=== PATIENT | male | born 1945 | race Caucasian/White ===

== ENCOUNTER 2020-01-06 18:50 | Inpatient (IN) | payer MEDICARE, BC ==
[~2020-01-06] VITALS: Ht 160 cm; Wt 73.7 kg
[~2020-01-06 18:50] MED LIST: ACET325T9 PO; ACET500L17 PO; ACET500T68 PO; ASPI325T8 PO; ATOR20TA58 PO; BYSTOLIC5 MG PO; CA/D1TAB11 PO; CALC600T PO; CHOL10003 PO; CHOL200074 PO; CLOP75TA PO; DOCU-109 PO; FENO160T PO; ISOS30TA4 PO; LEVO100T5 PO; LEVO88TA4 PO; LOTE5DRO2 OP; MAG355OR14 PO; METO25TA4 PO; MULT-245 PO; MULT1TAB52 PO; NIAC500T PO; NIAC500T14 PO; NITR0.4T22 SL; OMEG1CAP38 PO; OMEP40CA45 PO; PANT20TA2 PO; POLY17PO29 PO; PROP225T2 PO; RANI150T2 PO; RANO500T2 PO; RISE35TA3 PO; VITAMINS
[2020-01-06 19:25] VITALS: BP 107/54
[2020-01-06] MEDS ORDERED: CLONAZEPAM1 MG PO (19:38)
[2020-01-06] MEDS ORDERED: DEXT1DRO12 OP (19:38)
[2020-01-06] MEDS ORDERED: PITA2TAB2 PO (19:38)
[2020-01-06] MEDS ORDERED: MULT-509 PO (19:38)
[2020-01-06] MEDS ORDERED: NITROGLYCERIN SUBLINGUAL 0.4 MG BOTTLE OF 25. SL PRN (20:00)
[2020-01-06] MEDS ORDERED: ONDANSETRON PF 4 MG/2 ML VIAL. IVP PRN (20:00)
[2020-01-06] MEDS ORDERED: ALBUTEROL SULFATE 2.5 MG/3 ML NEBU. NEB PRN (20:00)
[2020-01-06] MEDS ORDERED: ACETAMINOPHEN 500 MG TABLET PO PRN (20:00)
[2020-01-06 20:38] LABS: BASO % 0 % (0-3); EOS # 0.2 x10^3/uL (0.0-0.7); EOS % 2 % (0-3); HEMATOCRIT 41.1 % (39.0-53.0); HEMOGLOBIN 14.2 g/dL (13.0-17.5); LYMPH # 1.4 x10^3/uL (1.0-4.8); LYMPH % 21 % (24-48); MEAN CORPUSCULAR HEMOGLOBIN 32 pg (25-35); MEAN CORPUSCULAR HGB CONC 35 g/dL (31-37); MEAN CORPUSCULAR VOLUME 93 fL (79-100); MONO # 0.7 x10^3/uL (0.0-1.1); MONO % 9 % (0-9); NEUT # 4.7 x10^3/uL (1.8-7.7); NEUT % 67 % (31-73); PLATELET COUNT 197 x10^3/uL (140-400); RED BLOOD COUNT 4.41 x10^6/uL (4.30-5.70); RED CELL DISTRIBUTION WIDTH 13.2 % (11.5-14.5)
[2020-01-06] MEDS: RANOLAZINE 500 MG TAB.ER.12H PO SCH (20:43)
[2020-01-06 20:46] LABS: CALCIUM 8.9 mg/dL (8.5-10.1); CREATININE 1.1 mg/dL (0.7-1.3); GFR 65.8; POTASSIUM 3.3 mmol/L (3.5-5.1)
[2020-01-06 20:51] LABS: ALBUMIN 3.3 g/dL (3.4-5.0); ALBUMIN/GLOBULIN RATIO 1.1 (1.0-1.7); C-REACTIVE PROTEIN 0.6 mg/L (0-3.3); TOTAL BILIRUBIN 0.4 mg/dL (0.2-1.0); TOTAL PROTEIN 6.4 g/dL (6.4-8.2)
[2020-01-06] MEDS: METOPROLOL TART IMMED RELEASE 25 MG TABLET. PO SCH (20:54)
[2020-01-06] MEDS ORDERED: NIACIN ER 250 MG TABLET.ER PO SCH (21:00)
[2020-01-06 23:25] VITALS: BP 123/63
[2020-01-07 03:25] VITALS: BP 116/67
[2020-01-07] MEDS ORDERED: LEVOTHYROXINE 100 MCG TABLET PO SCH (06:00)
[2020-01-07 07:15] VITALS: BP 141/71
[2020-01-07] MEDS ORDERED: PANTOPRAZOLE 40 MG TABLET.DR. PO SCH (07:30)
[2020-01-07] MEDS: RANOLAZINE 500 MG TAB.ER.12H PO SCH (08:46)
[2020-01-07] MEDS: METOPROLOL TART IMMED RELEASE 25 MG TABLET. PO SCH (08:48)
[2020-01-07] MEDS ORDERED: ASPIRIN 325 MG TABLET PO SCH (09:00)
[2020-01-07] MEDS ORDERED: CLOPIDOGREL BISULFATE 75 MG TABLET PO SCH (09:00)
[2020-01-07] MEDS ORDERED: ISOSORBIDE MONONITRATE ER 30 MG TAB.ER.24H PO SCH (09:00)
--- NOTE | 2020-01-07 09:53 | PDOC2 ---
NEUROLOGY CONSULT Date of Admission Date of Admission DATE: 01/07/20 TIME: 09:52 Reason for Consult Reason for Consult: Diplopia Referring Physician Referring Physician: Dr. Hairston PCP: Dr. Cantu Source Source: Chart review, Patient History of Present Illness History of Present Illness The patient is a 74-year-old right-handed male who 2 nights ago at 8 PM noted the onset of horizontal diplopia and chest pain. He went to the [facility] emergency department. He was transferred here mainly to get an MRI. There is no prior history of stroke, seizure, or head injury. 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 He has jerks mainly when he is starting to fall asleep (physiologic hypnic jerks?). He has had a negative electroencephalogram. Yesterday he noted some drooping of the right eyelid. There has been no headache or any other pain. There is no pain with eye movement. He has not had any recent infection. Past Medical History Cardiovascular: CAD, HTN, OH, Hyperlipidemia, Other ( palpitations) CENTRAL NERVOUS SYSTEM: Other (Myoclonus) GI: GERD Renal/: Prostate Ca. Endocrine: Hypothyroidism, Osteopenia Past Surgical History Past Surgical History: Hernia Repair, Other ( coronary stents) Family History Family History: Other ( cardiac disease) Social History Social History Single, retired, quit smoking in 1970, no alcohol Current Medications Current Medications Current Medications Acetaminophen (Tylenol) 500 mg PRN Q6HRS PRN PO MILD PAIN / TEMP; Start 01/06/20 at 20:00 Aspirin (Abbey Aspirin) 162.5 mg DAILY PO Last administered on 01/07/20at 08:46; Start 01/07/20 at 09:00 Clopidogrel Bisulfate (Plavix) 75 mg DAILY PO Last administered on 01/07/20at 08:49; Start 01/07/20 at 09:00 Isosorbide Mononitrate (Imdur) 30 mg DAILY PO Last administered on 01/07/20at 08:49; Start 01/07/20 at 09:00 Levothyroxine Sodium (Synthroid) 100 mcg DAILY06 PO Last administered on 01/07/20at 05:53; Start 01/07/20 at 06:00 Metoprolol Tartrate (Lopressor) 25 mg BID PO Last administered on 01/07/20at 08:48; Start 01/06/20 at 21:00 Nitroglycerin (Nitrostat) 0.4 mg PRN Q5MIN PRN SL CHEST PAIN; Start 01/06/20 at 20:00 Ranolazine (Ranexa) 1,000 mg BID PO Last administered on 01/07/20at 08:46; Start 01/06/20 at 21:00 Niacin (Slo-Niacin) 500 mg QHS PO ; Start 01/06/20 at 21:00 Pantoprazole Sodium (Protonix) 40 mg DAILYAC PO Last administered on 01/07/20at 08:49; Start 01/07/20 at 07:30 Albuterol Sulfate (Ventolin Neb Soln) 2.5 mg PRN QID PRN NEB SHORTNESS OF BREATH; Start 01/06/20 at 20:00 Ondansetron HCl (Zofran) 4 mg PRN Q4HRS PRN IVP NAUSEA/VOMITING; Start 01/06/20 at 20:00 Active Scripts Active Reported Livalo (Pitavastatin Calcium) 2 Mg Tablet 1 Tab PO DAILY 30 Days Genteal Tears 0.1%-0.3% Drop (Dextran 70/Hypromellose/Pf) 1 Each Droperette 1 Each OP QHS Complete Multivitamin (Multivits,Th W-Fe,Other Min) 1 Each Tablet 1 Tab PO TID 30 Days Clonazepam 1 Mg Tablet 1 Mg PO QHS Ranexa (Ranolazine) 500 Mg Tab.er.12h 2 Tab PO BID Protonix (Pantoprazole Sodium) 20 Mg Tablet.dr 2 Tab PO DAILY [place] 3 Fish Oil Softgel ([place]-3 Fatty Acids/Fish Oil) 1 Each Capsule.dr 1 Each PO TID NITROGLYCERIN SubLingual (Nitroglycerin) 0.4 Mg Tab.subl 0.4 Mg SL PRN Q5MIN PRN Metoprolol Tartrate 25 Mg Tablet 25 Mg PO BID Acetaminophen 500 Mg Tablet 1 Tab PO Q6HRS PRN Isosorbide Mononitrate Er (Isosorbide Mononitrate) 30 Mg Tab.er.24h 30 Mg PO DAILY Clopidogrel (Clopidogrel Bisulfate) 75 Mg Tablet 1 Tab PO DAILY Vitamin D3 (Cholecalciferol (Vitamin D3)) 1,000 Unit Tablet 2,000 Unit PO BID Niaspan (Niacin) 500 Mg Tab.er.24h 500 Mg PO HS Miralax (Polyethylene Glycol 3350) 17 Gm Powd.pack 1 Pkt PO DAILY PRN Levothyroxine Sodium 100 Mcg Tablet 100 Mcg PO DAILY06 Gaviscon Liquid (Mag Carb/Al Hydrox/Alginic Ac) 355 Ml Oral.susp 30 Ml PO PRN DAILY PRN Colace (Docusate Sodium) 100 Mg Capsule 100 Mg PO PRN DAILY PRN Caltrate 600+D3+Min Chew Tab (Ca/D3/Mag/Zinc/Vance/Miah/Mgbor) 1 Each Tab.chew 1 Each PO TID Aspirin 325 Mg Tablet 0.5 Tab PO DAILY Allergies Allergies: Coded Allergies: atorvastatin (Verified Allergy, Intermediate, 10/25/17) ezetimibe (Verified Allergy, Intermediate, 10/25/17) fenofibrate (Verified Allergy, Intermediate, 10/25/17) pravastatin (Verified Allergy, Intermediate, 10/25/17) rosuvastatin (Verified Allergy, Intermediate, 10/25/17) simvastatin (Verified Allergy, Intermediate, 10/25/17) ROS Review of System Negative for fever, chills, weight loss, shortness of breath, chest pain, indigestion, hematochezia, melena, and dysuria. Full 14-point review of systems is negative. Physical Exam Physical Examination General: Well-developed, well-nourished white male in no acute distress HEENT: Normocephalic andatraumatic. Temporal arteriespulsatile and nontender. Neck: Supple without bruit, no meningismus Musculoskeletal: Stability:see neurologic. Gait exam:see neurologic. Tone:see neurolo gic.Strength:see neurologic. Neurological: Mental Status:intact, orientation, memory, attention span/concentration, language, fund of knowledge normal. Cranial Nerves:There is right medial rectus palsy and ptosis, pupils equal and reactive to light, visual vega are full to confrontation. Facial sensation is normal. There is no facial asymmetry. Vestibulo-ocular reflex is intact. Palate elevates and tongue protrudes in midline. All other cranial related problems are negative except as mentioned before.Reflexes:2+ and symmetric with flexor plantar responses. Motor:5/5 strength with normal tone and bulk. Coordination:Finger-nose finger and mbyf-cf-bvap testing are normal. Rapid alternating movements and fine finger movements are intact. Gait:Normal, including tandem. Sensory:Normal pinprick, vibration, light touch, proprioception. Vitals VITALS Vital Signs Date Time Temp Pulse Resp B/P (MAP) Pulse Ox O2 Delivery O2 Flow Rate FiO2 01/07/20 08:49 81 141/71 01/07/20 07:15 97.7 18 99 Room Air 97.7 Labs Labs Laboratory Tests Test 01/06/20 20:25 White Blood Count 7.0 x10^3/uL (4.0-11.0) Red Blood Count 4.41 x10^6/uL (4.30-5.70) Hemoglobin 14.2 g/dL (13.0-17.5) Hematocrit 41.1 % (39.0-53.0) Mean Corpuscular Volume 93 fL (79-100) Mean Corpuscular Hemoglobin 32 pg (25-35) Mean Corpuscular Hemoglobin Concent 35 g/dL (31-37) Red Cell Distribution Width 13.2 % (11.5-14.5) Platelet Count 197 x10^3/uL (140-400) Neutrophils (%) (Auto) 67 % (31-73) Lymphocytes (%) (Auto) 21 % (24-48) Monocytes (%) (Auto) 9 % (0-9) Eosinophils (%) (Auto) 2 % (0-3) Basophils (%) (Auto) 0 % (0-3) Neutrophils # (Auto) 4.7 x10^3/uL (1.8-7.7) Lymphocytes # (Auto) 1.4 x10^3/uL (1.0-4.8) Monocytes # (Auto) 0.7 x10^3/uL (0.0-1.1) Eosinophils # (Auto) 0.2 x10^3/uL (0.0-0.7) Basophils # (Auto) 0.0 x10^3/uL (0.0-0.2) Erythrocyte Sedimentation Rate 5 (0-15) Sodium Level 139 mmol/L (136-145) Potassium Level 3.3 mmol/L (3.5-5.1) Chloride Level 104 mmol/L (98-107) Carbon Dioxide Level 26 mmol/L (21-32) Anion Gap 9 (6-14) Blood Urea Nitrogen 15 mg/dL (8-26) Creatinine 1.1 mg/dL (0.7-1.3) Estimated GFR (Cockcroft-Gault) 65.8 BUN/Creatinine Ratio 14 (6-20) Glucose Level 138 mg/dL (70-99) Calcium Level 8.9 mg/dL (8.5-10.1) Total Bilirubin 0.4 mg/dL (0.2-1.0) Aspartate Amino Transf (AST/SGOT) 13 U/L (15-37) Alanine Aminotransferase (ALT/SGPT) 31 U/L (16-63) Alkaline Phosphatase 50 U/L (46-116) C-Reactive Protein, Quantitative 0.6 mg/L (0-3.3) Total Protein 6.4 g/dL (6.4-8.2) Albumin 3.3 g/dL (3.4-5.0) Albumin/Globulin Ratio 1.1 (1.0-1.7) Laboratory Tests Test 01/06/20 20:25 White Blood Count 7.0 x10^3/uL (4.0-11.0) Red Blood Count 4.41 x10^6/uL (4.30-5.70) Hemoglobin 14.2 g/dL (13.0-17.5) Hematocrit 41.1 % (39.0-53.0) Mean Corpuscular Volume 93 fL (79-100) Mean Corpuscular Hemoglobin 32 pg (25-35) Mean Corpuscular Hemoglobin Concent 35 g/dL (31-37) Red Cell Distribution Width 13.2 % (11.5-14.5) Platelet Count 197 x10^3/uL (140-400) Neutrophils (%) (Auto) 67 % (31-73) Lymphocytes (%) (Auto) 21 % (24-48) Monocytes (%) (Auto) 9 % (0-9) Eosinophils (%) (Auto) 2 % (0-3) Basophils (%) (Auto) 0 % (0-3) Neutrophils # (Auto) 4.7 x10^3/uL (1.8-7.7) Lymphocytes # (Auto) 1.4 x10^3/uL (1.0-4.8) Monocytes # (Auto) 0.7 x10^3/uL (0.0-1.1) Eosinophils # (Auto) 0.2 x10^3/uL (0.0-0.7) Basophils # (Auto) 0.0 x10^3/uL (0.0-0.2) Erythrocyte Sedimentation Rate 5 (0-15) Sodium Level 139 mmol/L (136-145) Potassium Level 3.3 mmol/L (3.5-5.1) Chloride Level 104 mmol/L (98-107) Carbon Dioxide Level 26 mmol/L (21-32) Anion Gap 9 (6-14) Blood Urea Nitrogen 15 mg/dL (8-26) Creatinine 1.1 mg/dL (0.7-1.3) Estimated GFR (Cockcroft-Gault) 65.8 BUN/Creatinine Ratio 14 (6-20) Glucose Level 138 mg/dL (70-99) Calcium Level 8.9 mg/dL (8.5-10.1) Total Bilirubin 0.4 mg/dL (0.2-1.0) Aspartate Amino Transf (AST/SGOT) 13 U/L (15-37) Alanine Aminotransferase (ALT/SGPT) 31 U/L (16-63) Alkaline Phosphatase 50 U/L (46-116) C-Reactive Protein, Quantitative 0.6 mg/L (0-3.3) Total Protein 6.4 g/dL (6.4-8.2) Albumin 3.3 g/dL (3.4-5.0) Albumin/Globulin Ratio 1.1 (1.0-1.7) Images Images CT HEAD WO CONTRAST , 01/05/2020 10:39 PM Jose Guadalupe's Mild generalized cerebral and cerebellar volume loss. Mild nonspecific periventricular hypoattenuation, most commonly seen with chronic small vessel ischemic disease. Calcified atherosclerosis of the bilateral cavernous and paraclinoid internal carotid arteries and intracranial vertebral arteries. No intra- or extra-axial mass or fluid collection. No acute hemorrhage. The ventricles are normal in size, shape, and morphology. The burgess-white matter junction is normal. The subarachnoid cisterns are patent. The visualized paranasal sinuses are normal. The visualized portions of the orbits and globes are normal. The mastoid air cells are clear. The food tester topogram shows no lytic lesion or fracture. Impression: No acute intracranial process. Mild cerebral volume loss. Mild chronic small vessel ischemic disease. BILATERAL DUPLEX CAROTID SONOGRAPHY History: Hypertension, previous OH and TIA. Dyslipidemia. COMPARISON: Carotid Doppler ultrasound June 19, 2019. Technique: Duplex sonography of the cervical portion of both carotid arteries was performed. Real-time grayscale, color flow Doppler, and Doppler spectral waveform analysis is performed. Findings: Right side: Peak systolic flow velocity of the CCA is 90 cm/sec. Peak systolic flow velocity of the ICA is 104 cm/sec. The ICA/CCA ratio is 1.1. Peak end diastolic flow velocity of the ICA is 18 cm/sec. The peak systolic velocity of the ECA is 120 cm/sec. No significant plaque formation is identified. Left side: Peak systolic flow velocity of the CCA is 93 cm/sec. Peak systolic flow velocity of the ICA is 109 cm/sec. The ICA/CCA ratio is 1.2. Peak end diastolic flow velocity of the ICA is 18 cm/sec. Peak systolic flow velocity of the ECA is 96 cm/sec. No significant plaque formation is identified. Vertebral arteries: Bilateral vertebral arteries demonstrate antegrade flow. IMPRESSION: No hemodynamically significant internal carotid artery stenosis is identified. Assessment/Plan Assessment/Plan Impression: Painless, pupil-sparing right oculomotor palsy, usually this is due to diabetes or infarction of the nerve, vasculitis, connective tissue disease, intracranial infection, strudel aneurysm, venous sinus thrombosis are all much less likely given the absence of pain. History of myoclonus, sounds like physiologic hypnic jerks, patient is on clonazepam Recommendations: Brain MRI Steroids are unlikely to be helpful Alternatingly patch each eye, one day at a time, for instance right eye today, left eye tomorrow, etc. Follow-up with ophthalmology Follow-up with Dr. Robin Okay to discharge today if MRI negative. I discussed with Dr. Hairston Think you for letting me help with patient care. GILDA DELVALLE MD Jan 07, 2020 09:53
[2020-01-07 10:33] VITALS: BP 140/72
--- NOTE | 2020-01-07 10:50 | HP ---
ADMIT DATE: 01/06/2020 HISTORY OF PRESENT ILLNESS: The patient is a 74-year-old male patient who was admitted to [facility] through the Emergency Room with the complaints of double vision starting approximately at 8:00 p.m. in the evening of 01/05/2020. He stated he took a full dose of aspirin at that time. He said that he was evaluated in the Emergency Room and on presentation he denied any headache, denied any nausea or vomiting, denied any tingling, numbness or localized weakness. He has had a CT scan of the head without contrast, which showed the patient has no acute intracranial process with mild cerebral volume loss and mild chronic small vessel ischemic disease. He was seen in consultation by Dr. Gee who diagnosed him with partial right third nerve paralysis and recommended [facility] arrange for an MRI and MRA to exclude the possibility of cerebral aneurysm. When I saw him this morning, he was sitting on the edge of the bed, eating his breakfast comfortably, in no apparent distress. He continued to complain of diplopia, again denied any other complaints, in particular denied any headache, denied any lateralizing sign. PAST MEDICAL HISTORY: Significant for hypertension, hyperlipidemia, history of coronary artery disease and myocardial infarction for which he underwent percutaneous transluminal coronary angioplasty and stent deployment to his mid right coronary artery and left circumflex and distal stenosis with drug-eluting stent. He is also known to have hypothyroidism, prostate cancer and colon cancer. PAST SURGICAL HISTORY: Significant for PCI with stent deployment, prostate biopsy and colonoscopy with polypectomy. ALLERGIES: HE IS ALLERGIC TO ALL STATINS INCLUDING ATORVASTATIN, PRAVASTATIN, ROSUVASTATIN, AND SIMVASTATIN. HE IS ALSO ALLERGIC TO FENOFIBRATE AND ZETIA. FAMILY HISTORY: He has one brother, older, who at age 74 because of ischemic heart disease. Father at age of 65 because of myocardial infarction. Mother at age of 67 because of complication of diabetes. SOCIAL HISTORY: He is single, never , has no children. He quit smoking in 1970. He quit drinking also at the same time. He does not use any drugs. He has held multiple jobs including working for [employer] as well as [employer]. He is retired. MEDICATIONS: He is currently on following medications: He is on levothyroxine 100 mcg once a day, Ranexa 1000 mg twice a day, niacin 500 mg at bedtime, Protonix 40 mg daily, metoprolol tartrate 25 mg p.o. b.i.d., isosorbide mononitrate 30 mg daily, Plavix 75 mg daily, albuterol/Atrovent for DuoNeb 4 times a day. He is on Pitavastatin for Livalo 2 mg p.o. daily, niacin 500 mg daily, nitroglycerin 0.4 mg sublingually every 5 minutes x 3, Lovenox 60 mg subcutaneous twice a day, aspirin 81 mg with breakfast, acetaminophen 650 mg every 4 hours as needed and Zofran 4 mg IV every 4 hours. PHYSICAL EXAMINATION: GENERAL: When I examined him this morning, he looked well and was clearly in no apparent respiratory distress. No pallor, jaundice, cyanosis or thyromegaly. No jugular venous distention. No limb edema. VITAL SIGNS: His heart rate was 81, blood pressure 141/71, temperature was 97.7, respiratory rate was 18 and oxygen saturation was 99% on room air. HEAD, EYES, EARS, NOSE AND THROAT: Normocephalic, atraumatic. He has right ptosis and diplopia looking to the left side. The diplopia disappears when he closes his left eye. His pupil is slightly dilated. NEUROLOGIC: All other cranial nerves are intact. He moves his extremities without difficulty. He ambulates without assistance or assistive devices. LABORATORY DATA: His lab work showed a white cell count of 7000, hemoglobin 14, hematocrit 41, MCV 93, and platelet count of 197,000. His serum sodium was 139, potassium 3.3, chloride 104, bicarbonate 26, anion gap of 9, BUN 15, creatinine 1.1, estimated GFR was 65 mL per minute, his glucose 138, calcium was 8.9. Total bilirubin, AST, ALT, alkaline phosphatase were normal. Total protein was 6.4, albumin was 3.3. His C-reactive protein was and his sedimentation rate was only 5 mm per hour. 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 Gee to arrange for him to have an MRI and MRA to exclude the possibility of cerebral aneurysm causing this right third nerve paralysis. I have consulted Dr. Blackburn and meanwhile, we will continue with all his medication. His sed rate and C-reactive protein are well within normal limits, excluding the possibility of giant cell arteritis. PATEL MEDINA MD DR: PRUDENCOI/david JOB#: [id number] / [id number]
--- NOTE | 2020-01-07 11:42 | RAD ---
BRAIN W/O CONTRAST History: Right 3rd nerve palsy. Technique: Multiplanar, multi sequential MR imaging was performed of the brain without contrast. Comparison: CT January 15, 2019 and January 05, 2020 Findings: No acute infarct. No intracranial hemorrhage. No mass effect. No hydrocephalus. Mild brain parenchymal volume loss. Chronic left katz radiata lacunar infarct. Additional minimal foci of T2/FLAIR hyperintensities within the hemispheric white matter, most often due to chronic microvascular ischemia. Imaged orbits are unremarkable. Imaged paranasal sinuses and mastoid air cells are clear. Impression: 1. No acute intracranial abnormality. 2. Chronic small left katz radiata lacunar infarct. Electronically signed by: Awais Murillo DO (01/07/2020 11:39 AM) [id number]
--- NOTE | 2020-01-07 13:02 | DS ---
DATE OF DISCHARGE: 01/07/2020 HOSPITAL COURSE: The patient is transferred from [facility] where he was admitted with new onset of diplopia. He also had chest pain. He has ruled out for acute myocardial infarction and was seen by Dr. Pearson, who recommended doing an MRI brain. We did consult Dr. Price and has had his MRI done this morning, which showed that there is no acute infarct, no intracranial hemorrhage, no mass effect, no hydrocephalus, has mild brain parenchymal volume loss, chronic left katz radiata, lacunar infarct, additional minimal foci within the hemispheric white matter, most often due to chronic microvascular ischemia. Imaged orbits, paranasal sinuses and mastoid air cells are clear. He was seen by Dr. Price and recommended that the patient can safely be discharged to follow up with his potato chip maker and Dr. Robin, his neurologist. He did not recommend any steroid treatment and perhaps using a patch each eye one day at a time. When I examined him this morning, he was sitting at the edge of the bed comfortably in no apparent distress. Continued to have diplopia, but denied any headache, tingling, numbness, or lateralizing weakness. PHYSICAL EXAMINATION: GENERAL: On examining him, he looked well and was clearly in no apparent respiratory distress. No pallor, jaundice, cyanosis, or thyromegaly. No jugular venous distension. No lower limb edema. VITAL SIGNS: His heart rate was 82, blood pressure is 140/72 with temperature of 97.8, respiratory rate was 17 and oxygen saturation was 97%. The rest of clinical exam is stable. He was discharged. LABORATORY WORK: Showed hemoglobin of 14, hematocrit 42 with normal white cell count and platelets. Sedimentation rate was only 5 mm per hour. Chemistry was also unremarkable. He was discharged home to continue on his acetaminophen 500 mg every 6 hours, aspirin 325 mg; he takes half a tablet once a day, Caltrate with vitamin D 1 tablet 2 times a day, cholecalciferol with vitamin D 2000 International Units twice a day, clonazepam 1 mg at bedtime, Plavix 75 mg once a day, artificial tears 1 drop to both eyes at bedtime, Colace 100 mg as needed daily for constipation, Imdur 30 mg once a day, levothyroxine sodium 100 mcg once a day, Gaviscon liquid to take 30 mL p.o. daily p.r.n. for constipation, metoprolol 25 mg twice a day, multivitamin with mineral 1 tablet once a day, niacin 500 mg at bedtime, nitroglycerin 0.4 mg sublingually every 5 minutes x 3, omega-3 fatty acid 1000 mg 3 times a day, Protonix 40 mg once a day, pitavastatin for Livalo 2 mg 1 tablet p.o. daily, polyethylene glycol 17 grams daily and Ranexa 1000 mg twice a day. FINAL DISCHARGE DIAGNOSES: 1. Right third nerve paralysis. 2. Hypertension. 3. Hyperlipidemia. 4. Coronary artery disease, status post myocardial infarction, status post percutaneous transluminal coronary angioplasty and stent deployment. 5. Hypothyroidism. PATEL MEDINA MD DR: PRUDENCIO/david JOB#: [id number] / [id number]
--- NOTE | 2020-01-07 13:32 | NUR ---
SS following for discharge planning. SS reviewed pt chart and discussed with RN. Pt is from home and is currently on room air. Discharge order on the chart for home with self care.
[2020-01-07 14:40] VITALS: BP 161/62
--- NOTE | 2020-01-07 15:03 | NUR ---
Pt discharged to home per Cab. Discharge instructions reviewed. Questions answered and pt verbalized understanding. Eye patches sent with pt and he will start patching his eye alternating one and the other daily. Right eye one day and left the next. Instructions given per Dr Price.
== END 2020-01-07 15:03 | disposition home or self-care (01) | DRG 123 ==
LOC: 6 SOUTH 18:50
PROVIDERS: ADMIT Internal Medicine; ATTEND Internal Medicine
DX: H49.01 Third [oculomotor] nerve palsy, right eye (principal); K21.9 Gastro-esophageal reflux disease without esophagitis; I10 Essential (primary) hypertension; E78.5 Hyperlipidemia, unspecified; H02.401 Unspecified ptosis of right eyelid; I25.10 Atherosclerotic heart disease of native coronary artery without angina pectoris; E03.9 Hypothyroidism, unspecified; I25.2 Old myocardial infarction; Z95.5 Presence of coronary angioplasty implant and graft; Z85.46 Personal history of malignant neoplasm of prostate; Z85.038 Personal history of other malignant neoplasm of large intestine; Z88.8 Allergy status to other drugs, medicaments and biological substances; Z87.891 Personal history of nicotine dependence; Z86.73 Personal history of transient ischemic attack (TIA), and cerebral infarction without residual deficits; Z83.3 Family history of diabetes mellitus; Z82.49 Family history of ischemic heart disease and other diseases of the circulatory system
CPT/HCPCS: 36415; 70551; 80053; 85025; 85651; 86140; G0378

== ENCOUNTER 2020-05-06 17:10 | Inpatient (IN) | payer MEDICARE, BC ==
[~2020-05-06] VITALS: Ht 160 cm; Wt 69.8 kg
[2020-05-06 17:10] VITALS: BP 136/69
[~2020-05-06 17:10] MED LIST changes: +CLONAZEPAM1 MG PO; +DEXT1DRO12 OP; +MULT-445 PO; +MULT-509 PO; -MULT1TAB52 PO; +NIAC-23 PO; -NIAC500T14 PO; +PITA2TAB2 PO
[2020-05-06] MEDS ORDERED: ONDANSETRON PF 4 MG/2 ML VIAL. IVP PRN (18:15)
[2020-05-06] MEDS ORDERED: MORPHINE SULFATE 2 MG/ML VIAL. IV PRN (18:15)
[2020-05-06] MEDS ORDERED: DOCUSATE SODIUM 100 MG CAPSULE. PO PRN (18:15)
[2020-05-06] MEDS ORDERED: NITROGLYCERIN SUBLINGUAL 0.4 MG BOTTLE OF 25. SL PRN (18:15)
[2020-05-06] MEDS ORDERED: ACETAMINOPHEN 500 MG TABLET PO PRN (18:15)
[2020-05-06] MEDS ORDERED: POLYETHYLENE GLYCOL 3350 17 GM PACKET. PO PRN (18:15)
[2020-05-06] MEDS: OMEGA-3 FATTY ACIDS/FISH OIL 1,000 MG CAPSULE. PO SCH (18:20)
[2020-05-06] MEDS ORDERED: MAG HYDROX/ALUMINUM HYD/SIMETH 30 ML ORAL.SUSP PO PRN (18:30)
[2020-05-06 19:37] VITALS: BP 121/70
[2020-05-06] MEDS: clonazePAM 0.5 MG TABLET PO SCH (21:52)
[2020-05-06] MEDS: CHOLECALCIFEROL (VITAMIN D3) 1,000 UNIT TABLET PO SCH (21:53)
[2020-05-06] MEDS: NIACIN ER 250 MG CAPSULE.ER PO SCH (21:53)
[2020-05-06] MEDS: RANOLAZINE 500 MG TAB.ER.12H PO SCH (21:53)
[2020-05-06] MEDS: METOPROLOL TART IMMED RELEASE 25 MG TABLET. PO SCH (21:54)
[2020-05-06] MEDS: POLYVINYL ALCOHOL 1.4% OPHTH SOLUTION 15ML BOTTLE. OU SCH (21:54)
[2020-05-06 23:19] VITALS: BP 127/68
[2020-05-07] VITALS (17 sets, daily range): BP systolic 125–188; BP diastolic 61–99
[2020-05-07] MEDS: LEVOTHYROXINE 100 MCG TABLET PO SCH (04:39)
[2020-05-07] MEDS: CALCIUM CARB/VIT D3 500/200 TABLET. PO SCH ×3 (08:00→17:27)
[2020-05-07] MEDS: OMEGA-3 FATTY ACIDS/FISH OIL 1,000 MG CAPSULE. PO SCH ×3 (08:00→17:27)
[2020-05-07] MEDS: CLOPIDOGREL BISULFATE 75 MG TABLET PO SCH (08:13)
[2020-05-07] MEDS: METOPROLOL TART IMMED RELEASE 25 MG TABLET. PO SCH ×2 (08:13→20:53)
[2020-05-07] MEDS: ISOSORBIDE MONONITRATE ER 30 MG TAB.ER.24H PO SCH (08:14)
[2020-05-07] MEDS: ASPIRIN 325 MG TABLET PO SCH (08:14)
[2020-05-07] MEDS ORDERED: LIDOCAINE 1% PF 2 ML VIAL. ONE (08:23)
[2020-05-07] MEDS ORDERED: IODIXANOL 320 MG/ML 100 ML VIAL. ONE (08:23)
[2020-05-07] MEDS ORDERED: HEPARIN for IV BOLUS 10,000 UNIT/10 ML VIAL. ONE (08:29)
[2020-05-07] MEDS ORDERED: fentaNYL PF VIAL 100 MCG/2 ML VIAL ONE ×2 (08:29→09:06)
[2020-05-07] MEDS ORDERED: NITROGLYCERIN 200 MCG/2 ML SYRINGE FOR CATH/VASC LAB. ONE (08:29)
[2020-05-07] MEDS ORDERED: VERAPAMIL 5 MG/2 ML VIAL. ONE (08:29)
[2020-05-07] MEDS ORDERED: MIDAZOLAM HCL/PF 2 MG/2 ML VIAL. ONE ×2 (08:29→08:54)
[2020-05-07] MEDS ORDERED: fentaNYL PF VIAL 100 MCG/2 ML VIAL IV ONE (08:30)
[2020-05-07] MEDS ORDERED: MIDAZOLAM HCL/PF 2 MG/2 ML VIAL. IV ONE (08:30)
[2020-05-07] MEDS ORDERED: IODIXANOL 320 MG/ML 100 ML VIAL. IART ONE (08:30)
[2020-05-07] MEDS ORDERED: LIDOCAINE 1% PF 2 ML VIAL. INJ ONE (08:30)
[2020-05-07] MEDS ORDERED: CONTRAST GIVEN. MC PRN (08:45)
[2020-05-07] MEDS: NITROGLYCERIN 200 MCG/2 ML SYRINGE FOR CATH/VASC LAB. IART ONE ×2 (08:56→08:57)
[2020-05-07] MEDS: HEPARIN for IV BOLUS 10,000 UNIT/10 ML VIAL. IART ONE ×2 (08:56→08:57)
[2020-05-07] MEDS: VERAPAMIL 5 MG/2 ML VIAL. IART ONE (08:57)
[2020-05-07] MEDS ORDERED: LIDOCAINE 1% Multi-Dose 20 ML VIAL. ONE (09:02)
--- NOTE | 2020-05-07 11:30 | CARD ---
MR#: [id number] Date of Study: 05/07/2020 Ordering Physician: ADA LI, Referring Physician: ADA LI, Tech: RT Parrish (R) JYOTI APPROVED REPORT Technologist: RT Parrish (R) JYOTI Nurse: Radha Richardson RN Procedure(s) performed: FLOURO TIME 4.1 MINUTES DOSE 54.93 Gycm2 CONTRAST 98 CC'S VISIPAQUE MODERATE SEDATION 46 MINUTES LHC, Coronary angiography, Left ventriculogram HISTORY : The patient is a 74 year-old male with a history of . INDICATION The indication(s) include : non-STEMI . [facility] Clinical Frailty Scale [facility] Clinical Frailty Scale: Mildly Frail Heart Failure Heart Failure: Yes If Yes, Newly Diagnosed: No If Yes, HF Type: Diastolic If Yes, NYHA Class: Class II PROCEDURE NARRATIVE Clinical information: 74-year-old male with a known prior history of coronary artery disease, dyslipidemia who presented to the hospital in the setting of accelerating angina despite nitroglycerin use. He has had a previous right ostial PCI and left proximal circumflex PCI. He has been doing well over the last 3 years but over the last 4 weeks or so has had accelerating angina. He also had a positive troponin and theref ore due to his chest pain and elevated biomarkers he was taken to the cardiac catheterization [facility] for further evaluation. INFORMED CONSENT Informed consent was obtained from the patient. ACCESS: The right wrist was prepped and draped in usual sterile fashion. Multiple attempts at traversing the right radial artery after local anesthesia with 2% lidocaine were unsuccessful. The wire would not advance past the proximal segment. Therefore the right radial access was abandoned in favor of right common femoral arterial access. The right groin was also prepped and draped in usual sterile fashio n. Under 2% lidocaine local anesthesia a 6 Kiswahili introducer sheath was placed in the right common f emoral artery without difficulties. Limited right common femoral artery angiography demonstrated no significant peripheral disease. Procedure details: Right and left coronary angiography was performed with a JR4 and JL 3 5 catheters. Left ventriculogr aphy was obtained with a pigtail catheter and a pullback was performed. Findings: Aorta 160/80 LVEDP 17 mmHg No gradient on pullback Left ventriculogram: Normal LV systolic function with ejection fraction of 60%. No significant taina l regurgitation or aortic insufficiency. Coronary angiography: Left main is a moderate caliber vessel with mild luminal irregularities Left circumflex is a moderate caliber vessel with a proximal 60% stenosis, patent proximal stent foll owed by a 60% stenosis in the proximal moderate caliber obtuse marginal The first obtuse marginal is a moderate caliber vessel with more proximal stenosis extending from the circumflex as described above but the distal vessel is free of disease. The LAD is a small to moderate caliber vessel with a proximal 80% stenosis involving a bifurcation le kvng at the first diagonal as well as a mid 70% stenosis. The distal and apical vessel is small in c aliber without significant disease The first diagonal is a small caliber vessel with a ostial proximal 80% stenosis and a mid 80% stenos is. RCA is a moderate to large caliber vessel with an ostial 70% in-stent restenosis and diffuse heavy ca lcification RPL is a small caliber vessel with an ostial 80% stenosis RPDA is a small to moderate caliber vessel with a mid 90% stenosis Conclusion 1. Acute on chronic diastolic heart failure, LVEDP 17 mmHg 2. Normal LV systolic function with ejection fraction of 65% 3. Severe three-vessel coronary artery disease Recommendations 1. The patient previously had declined coronary bypass grafting when he had triple-vessel disease se veral years ago. Given the progressive nature of his coronary disease and in-stent restenosis of the RCA he would likely benefit from evaluation for coronary bypass grafting. We will have the surgical team evaluate him. 2. Continue aspirin therapy, beta-natalee and nitrates. Hold Plavix. Signed by : Ada Li, Electronically Approved : 05/07/2020 11:29:46
[2020-05-07] MEDS: MULTIVITAMIN with MINERAL TABLET. PO SCH (12:24)
[2020-05-07] MEDS: PANTOPRAZOLE 40 MG TABLET.DR. PO SCH (12:24)
[2020-05-07] MEDS: CHOLECALCIFEROL (VITAMIN D3) 1,000 UNIT TABLET PO SCH ×2 (12:24→20:51)
[2020-05-07] MEDS: RANOLAZINE 500 MG TAB.ER.12H PO SCH ×2 (12:25→20:53)
--- NOTE | 2020-05-07 12:25 | NUR ---
SS following for discharge planning. SS reviewed pt chart and discussed with pt RN. Pt is from home and is currently on room air. Pt had heart cath today. SS will continue to follow for discharge planning.
--- NOTE | 2020-05-07 13:16 | PDOC ---
[facility] PROGRESS NOTE Chief Complaint Chief Complaint Multivessel CAD CKD stage 3 Acute on chronic diastolic heart failure, LVEDP 17 mmHg Hx of ME with catheterization in 2018 Hx of prostate cancer History of Present Illness History of Present Illness 05/07/2020 Patient is seen and examined Patient is awake and in NAD Chart reviewed Discussed with RN Vitals/I&O Vitals/I&O: Vital Signs Date Time Temp Pulse Resp B/P (MAP) Pulse Ox O2 Delivery O2 Flow Rate FiO2 05/07/20 12:25 75 145/83 05/07/20 11:30 98 Room Air 05/07/20 11:00 97.7 16 97.7 05/07/20 09:35 2.0 I & O 05/06/20 05/06/20 05/07/20 15:00 23:00 07:00 Intake Total 360 ml 550 ml Balance 360 ml 550 ml Physical Exam Physical Exam: GENERAL: No apparent distress. Alert and oriented. HEENT: Head normocephalic, atraumatic. NECK: Supple LUNGS: Clear to auscultation. HEART: RRR, S1, S2 present. ABDOMEN: Soft, no distension EXTREMITIES: No cyanosis or edema SKIN: No ulceration, no rashes General: Alert, Cooperative, No acute distress Heart: Regular rate Lungs: Clear Abdomen: Soft Extremities: No clubbing, No cyanosis Skin: No rashes Assessment and Plan Assessmemt and Plan ASSESSMENT Multivessel CAD CKD stage 3 Acute on chronic diastolic heart failure, LVEDP 17 mmHg Hx of ME with catheterization in 2018 Hx prostate cancer PLAN Continuous cardiac monitoring Cardiology consult Serial enzymes Trend labs DVT prophylaxis Subspecialist input appreciated Full code Comment Review of Relevant I have reviewed the following items guillermina (where applicable) has been applied. Medications: Current Medications Medications (Trade) Dose Ordered Sig/Ashkan Route PRN Reason Start Time Stop Time Status Last Admin Dose Admin Aspirin (Abbey Aspirin) 325 mg DAILY PO 05/07/20 09:00 05/07/20 08:14 Vitamin D (Vitamin D3) 2,000 unit BID PO 05/06/20 21:00 05/07/20 12:24 Clopidogrel Bisulfate (Plavix) 75 mg DAILY PO 05/07/20 09:00 05/07/20 08:13 Isosorbide Mononitrate (Imdur) 30 mg DAILY PO 05/07/20 09:00 05/07/20 08:14 Metoprolol Tartrate (Lopressor) 25 mg BID PO 05/06/20 21:00 05/07/20 08:13 Ranolazine (Ranexa) 1,000 mg BID PO 05/06/20 21:00 05/07/20 12:25 Calcium/Vitamin D (Oscal D 500mg/ 200uts) 1 tab TIDWMEALS PO 05/07/20 08:00 05/07/20 12:24 Clonazepam (KlonoPIN) 1 mg QHS PO 05/06/20 21:00 05/06/20 21:52 Artificial Tears (Artificial Tears) 1 drop QHS OU 05/06/20 21:00 05/06/20 21:54 Multivitamins (Thera M Plus) 1 tab DAILY PO 05/07/20 09:00 05/07/20 12:24 Niacin (Niaspan) 500 mg QHS PO 05/06/20 21:00 05/06/20 21:53 Fish Oil (Fish Oil) 1,000 mg TIDWMEALS PO 05/06/20 19:00 05/07/20 12:25 Pantoprazole Sodium (Protonix) 40 mg DAILYAC PO 05/07/20 07:30 05/07/20 12:24 Heparin Sodium/ Sodium Chloride (HEPARIN for ARTERIAL LINE FLUSH) 1,000 unit 1X ONCE IART 05/07/20 08:30 05/07/20 08:41 DC 05/07/20 08:30 Heparin Sodium/ Sodium Chloride (HEPARIN for ARTERIAL LINE FLUSH) 1,000 unit 1X ONCE IART 05/07/20 08:30 05/07/20 08:41 DC 05/07/20 08:30 Midazolam HCl (Versed) 2 mg 1X ONCE IV 05/07/20 08:30 05/07/20 08:41 DC 05/07/20 08:49 Fentanyl Citrate (Fentanyl 2ml Vial) 100 mcg 1X ONCE IV 05/07/20 08:30 05/07/20 08:41 DC 05/07/20 08:49 Iodixanol (Visipaque 320) 100 ml 1X ONCE IART 05/07/20 08:30 05/07/20 08:41 DC 05/07/20 09:20 Lidocaine HCl (Xylocaine-Mpf 1% 2ml Vial) 2 ml 1X ONCE INJ 05/07/20 08:30 05/07/20 08:41 DC 05/07/20 08:56 Justicifation of Admission Dx: Justifications for Admission: Justification of Admission Dx: N/A KEITH RODRIGES III DO May 07, 2020 13:16
--- NOTE | 2020-05-07 14:20 | HP ---
ADMIT DATE: 05/06/2020 CHIEF COMPLAINT: Chest pain. HISTORY OF PRESENT ILLNESS: The patient is a pleasant middle-aged male, who presented to the [facility] ER with chest pain. 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 The patient is now being examined on the telemetry floor where we recommended probable bypass surgery, although he is refusing. Apparently, he also had the same issue a couple of years ago. He was told to get bypass surgery, but he refused that. I just called Dr. Jay. He is going to come and talk to the patient again about possibly doing bypass surgery. PAST MEDICAL HISTORY: Coronary artery disease, noncompliance, hypertension, hyperlipidemia, polypharmacy, angina, CHF, anxiety, depression, constipation, GERD. ALLERGIES: ATORVASTATIN, FENOFIBRIC ACID, PRAVASTATIN. FAMILY HISTORY: Coronary artery disease. SOCIAL HISTORY: He is retired. He has 3 cats. He wants to go home with them. He does not drink, smoke or take drugs. MEDICATIONS: Reviewed, please refer to the MRAD. He is on 20 of them. REVIEW OF SYSTEMS: GENERAL: No history of weight change, weakness or fevers. SKIN: No bruising, hair changes or rashes. EYES: No blurred, double or loss of vision. NOSE AND THROAT: No history of nosebleeds, hoarseness or sore throat. HEART: No history of palpitations, chest pain or shortness of breath on exertion. LUNGS: Denies cough, hemoptysis, wheezing or shortness of breath. GASTROINTESTINAL: Denies changes in appetite, nausea, vomiting, diarrhea or constipation. GENITOURINARY: No history of frequency, urgency, hesitancy or nocturia. NEUROLOGIC: Denies history of numbness, tingling, tremor or weakness. PSYCHIATRIC: No history of panic, anxiety or depression. ENDOCRINE: No history of heat or cold intolerance, polyuria or polydipsia. EXTREMITIES: Denies muscle weakness, joint pain, pain on walking or stiffness. PHYSICAL EXAMINATION: VITALS: Within normal limits and are stable. GENERAL: No apparent distress. Alert and oriented. HEENT: Normal cephalic atraumatic, external auditory canals are patent. EYES: Extraocular muscles are intact, pupils are equally round and reactive to light and accommodation. MUSCULOSKELETAL: Well developed, well nourished, good range of motion. ENDOCRINE: No thyromegaly was palpated. LYMPHATICS: No cervical chain or axillary nodes were noted. HEMATOPOIETIC: No bruising. NECK: Supple, no JVD, no thyromegaly was noted. LUNGS: Clear to auscultation in all lung vega without rhonchi or wheezing. HEART: RRR, S1, S2 present. Peripheral pulses intact, no obvious murmurs were noted. ABDOMEN: Soft, nontender. Positive bowel sounds no organomegaly, normal bowel sounds. EXTREMITIES: Without any cyanosis, clubbing, or edema. Pedal pulses intact, Homans sign is negative. NEUROLOGIC: Normal speech, normal tone. A and O x 3, moves all extremities, no obvious focal deficits. PSYCHIATRIC: Normal affect, normal mood. Stable. SKIN: No ulcerations or rashes, good skin turgor, no jaundice. VASCULAR: Good capillary refill, neurovascular bundle appears to be intact. ASSESSMENT AND PLAN: Multivessel disease, suspect the patient may need bypass surgery, but he is not interested. We are going to await for Dr. Jay, then we talk to him. For now, we are doing cardiac monitoring, serial enzymes, serial EKGs, home meds, DVT prophylaxis. Full code. Prognosis guarded. KEITH RODRIGES DO DR: IKER/david JOB#: [id number] / [id number]
--- NOTE | 2020-05-07 15:24 | NUR ---
SS following up with discharge planning. SS reviewed pt chart and discussed with pt RN. SS was notified that pt will transfer to [facility] for cardiac procedure on 05/08/2020. SS contacted [facility], ; fax [phone], and discussed with transfer team. SS faxed records as requested. [facility] reported that any additional records and CD of imaging be sent once received. Case management assisting. [facility] reported that they are currently awaiting facility approval. Packet and transfer form placed on chart. SS will continue to follow for discharge planning.
--- NOTE | 2020-05-07 15:53 | RAD ---
CT CHEST WO CONTRAST History: Pre-CABG workup Technique: Noncontrast CT of the chest was performed. Coronal and sagittal reconstructions were performed. Exposure: One or more of the following individualized dose reduction techniques were utilized for this examination: 1. Automated exposure control 2. Adjustment of the mA and/or kV according to patient size 3. Use of iterative reconstruction technique. Comparison: None Findings: Chest: Coronary artery calcifications. Mild atheromatous plaque within the aorta. No aortic dilatation. No pathologic lymphadenopathy. No consolidation or pleural effusion. Mild linear right middle lobe and lingular atelectasis. Upper abdomen: Increased density within the gallbladder, may relate to vicarious excretion of contrast from recent contrast study gallbladder sludge. Contrast noted within the renal collecting system. Bones: No pathologic osseous lesions. Impression: 1. No acute intrathoracic pathology. Electronically signed by: Awais Murillo DO (05/07/2020 3:50 PM) [id number]
--- NOTE | 2020-05-07 16:54 | RAD ---
EXAM: Carotid Doppler sonogram. HISTORY: Coronary artery bypass grafting. Atherosclerosis. TECHNIQUE: Vee scale and color Doppler sonographic evaluation of the neck with spectral waveform analysis was performed and static images are submitted for review. FINDINGS: There is atherosclerotic plaque within the right carotid bulb. The peak systolic velocity within the right common carotid artery is 87 cm/sec. The peak systolic velocity within the right internal carotid artery is 125 cm/sec and the end diastolic velocity within the right internal carotid artery is 22 cm/sec. The right ICA/CCA ratio is 1.5. The peak systolic velocity within the left common carotid artery is 87 cm/sec. The peak systolic velocity within the left internal carotid artery is 84 cm/sec and the end diastolic velocity within the left internal carotid artery is 29 cm/sec. The left ICA/CCA ratio is 0.95. There is normal antegrade flow within both vertebral arteries. IMPRESSION: 1. Borderline elevated peak systolic velocity within the right ICA. This may be due to vessel tortuosity within its distal segment. This can be seen with near 50 percent stenosis. 2. No additional hemodynamically significant stenosis. 3. Mild atherosclerotic plaque within the right carotid bulb. PQRS Compliance Statement - Stenosis calculations for CT, MR and conventional angiography are based upon measurement of the distal ICA diameter in accordance with the NASCET methodology. Stenosis calculations for carotid ultrasound studies are derived from validated velocity criteria which are known to correlate with the NASCET methodology. Electronically signed by: Jo Ann Denis MD (05/07/2020 4:51 PM) [id number]
--- NOTE | 2020-05-07 17:13 | RAD ---
Examination: VEIN MAPPING LOWER EXT BILAT History: Reason: preCABG Comparison/Correlation: None Findings: Lower extremity venous ultrasound mapping was performed. Measurements are provided in centimeters. Right great saphenous vein Superior 0.6 cm Proximal thigh 0.3 cm Mid to distal thigh 0.2 cm Need to distal calf level 0.1 cm Ankle levels Right lesser saphenous vein Proximal and distal calf 0.2 cm Mid calf 0.3 cm Left great saphenous vein Superior 0.5 cm Proximal to distal thigh 0.3 cm Knee level 0.2 cm Calf 0.1 cm Ankle level 0.2 cm Left lesser saphenous vein 0.5 cm proximally 0.1 cm distally Limited left lesser saphenous vein has thrombus within it. A tributary about it also has thrombus. Thrombus is nonocclusive. Impression: Measurements of the right and left greater and lesser saphenous veins provided. Incidental note is made of nonocclusive superficial venous thrombus involving the left lesser saphenous vein. Electronically signed by: Adams Pillai MD (05/07/2020 5:10 PM) [id number]
[2020-05-07] MEDS: NIACIN ER 250 MG CAPSULE.ER PO SCH (20:50)
[2020-05-07] MEDS: clonazePAM 0.5 MG TABLET PO SCH (20:50)
[2020-05-07] MEDS: POLYVINYL ALCOHOL 1.4% OPHTH SOLUTION 15ML BOTTLE. OU SCH (20:53)
[2020-05-08 03:59] VITALS: BP 148/82
[2020-05-08] MEDS: LEVOTHYROXINE 100 MCG TABLET PO SCH (05:54)
[2020-05-08 07:11] VITALS: BP 116/58
[2020-05-08] MEDS: ASPIRIN 325 MG TABLET PO SCH (09:05)
[2020-05-08] MEDS: MULTIVITAMIN with MINERAL TABLET. PO SCH (09:05)
[2020-05-08] MEDS: OMEGA-3 FATTY ACIDS/FISH OIL 1,000 MG CAPSULE. PO SCH ×2 (09:05→12:00)
[2020-05-08] MEDS: METOPROLOL TART IMMED RELEASE 25 MG TABLET. PO SCH (09:06)
[2020-05-08] MEDS: CHOLECALCIFEROL (VITAMIN D3) 1,000 UNIT TABLET PO SCH (09:06)
[2020-05-08] MEDS: CLOPIDOGREL BISULFATE 75 MG TABLET PO SCH (09:07)
[2020-05-08] MEDS: PANTOPRAZOLE 40 MG TABLET.DR. PO SCH (09:07)
[2020-05-08] MEDS: ISOSORBIDE MONONITRATE ER 30 MG TAB.ER.24H PO SCH (09:07)
[2020-05-08] MEDS: CALCIUM CARB/VIT D3 500/200 TABLET. PO SCH ×2 (09:08→12:51)
--- NOTE | 2020-05-08 09:26 | PDOC ---
PROGRESS NOTES Chief Complaint Chief Complaint IMPRESSION Multivessel CAD CKD stage 3 Acute on chronic diastolic heart failure, LVEDP 17 mmHg Hx of RI with catheterization in 2018 Acute on chronic diastolic heart failure, LVEDP 17 mmHg Normal LV systolic function with ejection fraction of 65% Severe three-vessel coronary artery disease Hx of prostate cancer PLAN Transfer to [facility] today when bed available d/w rn History of Present Illness History of Present Illness 05/08/2020 Patient is seen and examined Patient is awake and in NAD Chart reviewed Discussed with RN Vitals Vitals Vital Signs Date Time Temp Pulse Resp B/P (MAP) Pulse Ox O2 Delivery O2 Flow Rate FiO2 05/08/20 09:07 86 183/94 05/08/20 07:11 97.5 16 98 Room Air 97.5 05/07/20 09:35 2.0 Physical Exam Physical Exam GENERAL: No apparent distress. Alert and oriented. HEENT: Head normocephalic, atraumatic. NECK: Supple LUNGS: Clear to auscultation. HEART: RRR, S1, S2 present. ABDOMEN: Soft, no distension EXTREMITIES: No cyanosis or edema SKIN: No ulceration, no rashes General: Alert, Oriented X3, Cooperative, No acute distress Heart: Regular rate, Normal S1, Normal S2 Lungs: Clear Abdomen: Normal bowel sounds, Soft, No tenderness Extremities: No clubbing, No cyanosis Skin: No rashes Labs LABS CT CHEST WO CONTRAST History: Pre-CABG workup Technique: Noncontrast CT of the chest was performed. Coronal and sagittal reconstructions were performed. Exposure: One or more of the following individualized dose reduction techniques were utilized for this examination: 1. Automated exposure control 2. Adjustment of the mA and/or kV according to patient size 3. Use of iterative reconstruction technique. Comparison: None Findings: Chest: Coronary artery calcifications. Mild atheromatous plaque within the aorta. No aortic dilatation. No pathologic lymphadenopathy. No consolidation or pleural effusion. Mild linear right middle lobe and lingular atelectasis. Upper abdomen: Increased density within the gallbladder, may relate to vicarious excretion of contrast from recent contrast study gallbladder sludge. Contrast noted within the renal collecting system. Bones: No pathologic osseous lesions. Impression: 1. No acute intrathoracic pathology. Electronically signed by: Awais Murillo DO (05/07/2020 3:50 PM) [id number] INFORMED CONSENT Informed consent was obtained from the patient. ACCESS: The right wrist was prepped and draped in usual sterile fashion. Multiple attempts at traversing the right radial artery after local anesthesia with 2% lidocaine were unsuccessful. The wire would not advance past the proximal segment. Therefore the right radial access was abandoned in favor of right common femoral arterial access. The right groin was also prepped and draped in usual sterile fashion. Under 2% lidocaine local anesthesia a 6 Ivorian introducer sheath was placed in the right common femoral artery without difficulties. Limited right common femoral artery angiography demonstrated no significant peripheral disease. Procedure details: Right and left coronary angiography was performed with a JR4 and JL 3 5 catheters. Left ventriculography was obtained with a pigtail catheter and a pullback was performed. Findings: Aorta 160/80 LVEDP 17 mmHg No gradient on pullback Left ventriculogram: Normal LV systolic function with ejection fraction of 60%. No significant mitral regurgitation or aortic insufficiency. Coronary angiography: Left main is a moderate caliber vessel with mild luminal irregularities Left circumflex is a moderate caliber vessel with a proximal 60% stenosis, patent proximal stent followed by a 60% stenosis in the proximal moderate caliber obtuse marginal The first obtuse marginal is a moderate caliber vessel with more proximal stenosis extending from the circumflex as described above but the distal vessel is free of disease. The LAD is a small to moderate caliber vessel with a proximal 80% stenosis involving a bifurcation lesion at the first diagonal as well as a mid 70% stenosis. The distal and apical vessel is small in caliber without significant disease The first diagonal is a small caliber vessel with a ostial proximal 80% stenosis and a mid 80% stenosis. RCA is a moderate to large caliber vessel with an ostial 70% in-stent restenosis and diffuse heavy calcification RPL is a small caliber vessel with an ostial 80% stenosis RPDA is a small to moderate caliber vessel with a mid 90% stenosis Conclusion 1. Acute on chronic diastolic heart failure, LVEDP 17 mmHg 2. Normal LV systolic function with ejection fraction of 65% 3. Severe three-vessel coronary artery disease Recommendations 1. The patient previously had declined coronary bypass grafting when he had triple-vessel disease several years ago. Given the progressive nature of his coronary disease and in-stent restenosis of the RCA he would likely benefit from evaluation for coronary bypass grafting. We will have the surgical team evaluate him. 2. Continue aspirin therapy, beta-natalee and nitrates. Hold Plavix. Signed by : Ada Jay, Electronically Approved : 05/07/2020 11:29:46 DICTATED and SIGNED BY: ADA JAY MD DATE: 05/07/20 0937 EXAM: Carotid Doppler sonogram. HISTORY: Coronary artery bypass grafting. Atherosclerosis. TECHNIQUE: Vee scale and color Doppler sonographic evaluation of the neck with spectral waveform analysis was performed and static images are submitted for review. FINDINGS: There is atherosclerotic plaque within the right carotid bulb. The peak systolic velocity within the right common carotid artery is 87 cm/sec. The peak systolic velocity within the right internal carotid artery is 125 cm/sec and the end diastolic velocity within the right internal carotid artery is 22 cm/sec. The right ICA/CCA ratio is 1.5. The peak systolic velocity within the left common carotid artery is 87 cm/sec. The peak systolic velocity within the left internal carotid artery is 84 cm/sec and the end diastolic velocity within the left internal carotid artery is 29 cm/sec. The left ICA/CCA ratio is 0.95. There is normal antegrade flow within both vertebral arteries. IMPRESSION: 1. Borderline elevated peak systolic velocity within the right ICA. This may be due to vessel tortuosity within its distal segment. This can be seen with near 50 percent stenosis. 2. No additional hemodynamically significant stenosis. 3. Mild atherosclerotic plaque within the right carotid bulb. PQRS Compliance Statement - Stenosis calculations for CT, MR and conventional angiography are based upon measurement of the distal ICA diameter in accordance with the NASCET methodology. Stenosis calculations for carotid ultrasound studies are derived from validated velocity criteria which are known to correlate with the NASCET methodology. Electronically signed by: Jo Ann Denis MD (05/07/2020 4:51 PM) [id number] Laboratory Tests Test 05/07/20 16:27 SARS-CoV-2 Antigen (Rapid) Negative (NEGATIVE) Comment Review of Relevant I have reviewed the following items guillermina (where applicable) has been applied. Labs Laboratory Tests Test 05/07/20 16:27 SARS-CoV-2 Antigen (Rapid) Negative (NEGATIVE) Laboratory Tests Test 05/07/20 16:27 SARS-CoV-2 Antigen (Rapid) Negative (NEGATIVE) Medications Current Medications Acetaminophen (Tylenol) 500 mg PRN Q6HRS PRN PO MILD PAIN / TEMP > 100.3'F; Start 05/06/20 at 18:15 Aspirin (Abbey Aspirin) 325 mg DAILY PO Last administered on 05/08/20 09:05; Start 05/07/20 at 09:00 Vitamin D (Vitamin D3) 2,000 unit BID PO Last administered on 05/08/20 09:06; Start 05/06/20 at 21:00 Clopidogrel Bisulfate (Plavix) 75 mg DAILY PO Last administered on 05/08/20at 09:07; Start 05/07/20 at 09:00 Docusate Sodium (Colace) 100 mg PRN DAILY PRN PO HARD STOOLS; Start 05/06/20 at 18:15 Isosorbide Mononitrate (Imdur) 30 mg DAILY PO Last administered on 05/08/20 09:07; Start 05/07/20 at 09:00 Levothyroxine Sodium (Synthroid) 100 mcg DAILY06 PO Last administered on 05/08/20at 05:54; Start 05/07/20 at 06:00 Metoprolol Tartrate (Lopressor) 25 mg BID PO Last administered on 05/08/20 09:06; Start 05/06/20 at 21:00 Nitroglycerin (Nitrostat) 0.4 mg PRN Q5MIN PRN SL CHEST PAIN; Start 05/06/20 at 18:15 Polyethylene Glycol (miraLAX PACKET) 17 gm PRN DAILY PRN PO CONSTIPATION; Start 05/06/20 at 18:15 Ranolazine (Ranexa) 1,000 mg BID PO Last administered on 05/07/20at 20:53; Start 05/06/20 at 21:00 Calcium/Vitamin D (Oscal D 500mg/ 200uts) 1 tab TIDWMEALS PO Last administered on 05/08/20 09:08; Start 05/07/20 at 08:00 Clonazepam (KlonoPIN) 1 mg QHS PO Last administered on 05/07/20 20:50; Start 05/06/20 at 21:00 Artificial Tears (Artificial Tears) 1 drop QHS OU Last administered on 05/07/20 20:53; Start 05/06/20 at 21:00 Al Hydroxide/Mg Hydroxide (Mylanta Plus Xs) 30 ml PRN Q2HR PRN PO HEARTBURN / GAS; Start 05/06/20 at 18:30 Multivitamins (Thera M Plus) 1 tab DAILY PO Last administered on 05/08/20at 09:05; Start 05/07/20 at 09:00 Niacin (Niaspan) 500 mg QHS PO Last administered on 05/07/20at 20:50; Start 05/06/20 at 21:00 Fish Oil (Fish Oil) 1,000 mg TIDWMEALS PO Last administered on 05/08/20at 09:05; Start 05/06/20 at 19:00 Pantoprazole Sodium (Protonix) 40 mg DAILYAC PO Last administered on 05/08/20at 09:07; Start 05/07/20 at 07:30 Morphine Sulfate (Morphine Sulfate) 2 mg PRN Q2HR PRN IV PAIN; Start 05/06/20 at 18:15 Ondansetron HCl (Zofran) 4 mg PRN Q4HRS PRN IVP NAUSEA/VOMITING; Start 05/06/20 at 18:15 Iodixanol (Visipaque 320) 100 ml STK-MED ONCE .ROUTE ; Start 05/07/20 at 08:23; Stop 05/07/20 at 08:24; Status DC Lidocaine HCl (Xylocaine-Mpf 1% 2ml Vial) 2 ml STK-MED ONCE .ROUTE ; Start 05/07/20 at 08:23; Stop 05/07/20 at 08:24; Status DC Heparin Sodium/ Sodium Chloride 1,000 ml @ As Directed STK-MED ONCE .ROUTE ; Start 05/07/20 at 08:24; Stop 05/07/20 at 08:24; Status DC Fentanyl Citrate (Fentanyl 2ml Vial) 100 mcg STK-MED ONCE .ROUTE ; Start 05/07/20 at 08:29; Stop 05/07/20 at 08:29; Status DC Midazolam HCl (Versed) 2 mg STK-MED ONCE .ROUTE ; Start 05/07/20 at 08:29; Stop 05/07/20 at 08:29; Status DC Heparin Sodium (Porcine) (Heparin Sodium) 10,000 unit STK-MED ONCE .ROUTE ; Start 05/07/20 at 08:29; Stop 05/07/20 at 08:29; Status DC Verapamil HCl (Verapamil) 5 mg STK-MED ONCE .ROUTE ; Start 05/07/20 at 08:29; Stop 05/07/20 at 08:29; Status DC Nitroglycerin (Nitroglycerin) 200 mcg STK-MED ONCE .ROUTE ; Start 05/07/20 at 08:29; Stop 05/07/20 at 08:29; Status DC Nitroglycerin (Nitroglycerin) 200 mcg 1X ONCE IART ; Start 05/07/20 at 08:30; Stop 05/07/20 at 08:41; Status DC Verapamil HCl (Verapamil) 2.5 mg 1X ONCE IART ; Start 05/07/20 at 08:30; Stop 05/07/20 at 08:41; Status DC Heparin Sodium (Porcine) (Heparin Sodium) 2,500 unit 1X ONCE IART ; Start 05/07/20 at 08:30; Stop 05/07/20 at 08:41; Status DC Heparin Sodium/ Sodium Chloride (HEPARIN for ARTERIAL LINE FLUSH) 1,000 unit 1X ONCE IART Last administered on 05/07/20at 08:30; Start 05/07/20 at 08:30; Stop 05/07/20 at 08:41; Status DC Heparin Sodium/ Sodium Chloride (HEPARIN for ARTERIAL LINE FLUSH) 1,000 unit 1X ONCE IART Last administered on 05/07/20at 08:30; Start 05/07/20 at 08:30; Stop 05/07/20 at 08:41; Status DC Midazolam HCl (Versed) 2 mg 1X ONCE IV Last administered on 05/07/20at 08:49; Start 05/07/20 at 08:30; Stop 05/07/20 at 08:41; Status DC Fentanyl Citrate (Fentanyl 2ml Vial) 100 mcg 1X ONCE IV Last administered on 05/07/20at 08:49; Start 05/07/20 at 08:30; Stop 05/07/20 at 08:41; Status DC Iodixanol (Visipaque 320) 100 ml 1X ONCE IART Last administered on 05/07/20at 09:20; Start 05/07/20 at 08:30; Stop 05/07/20 at 08:41; Status DC Lidocaine HCl (Xylocaine-Mpf 1% 2ml Vial) 2 ml 1X ONCE INJ Last administered on 05/07/20at 08:56; Start 05/07/20 at 08:30; Stop 05/07/20 at 08:41; Status DC Info (CONTRAST GIVEN -- Rx MONITORING) 1 each PRN DAILY PRN MC SEE COMMENTS; Start 05/07/20 at 08:45; Stop 05/09/20 at 08:44 Midazolam HCl (Versed) 2 mg STK-MED ONCE .ROUTE ; Start 05/07/20 at 08:54; Stop 05/07/20 at 08:55; Status DC Lidocaine HCl (Lidocaine 1% 20ml Vial) 20 ml STK-MED ONCE .ROUTE ; Start 05/07/20 at 09:02; Stop 05/07/20 at 09:03; Status DC Fentanyl Citrate (Fentanyl 2ml Vial) 100 mcg STK-MED ONCE .ROUTE ; Start 05/07/20 at 09:06; Stop 05/07/20 at 09:07; Status DC Active Scripts Active Reported Livalo (Pitavastatin Calcium) 2 Mg Tablet 1 Tab PO DAILY 30 Days Genteal Tears 0.1%-0.3% Drop (Dextran 70/Hypromellose/Pf) 1 Each Droperette 1 Each OP QHS Complete Multivitamin (Multivits,Th W-Fe,Other Min) 1 Each Tablet 1 Tab PO TID 30 Days Clonazepam 1 Mg Tablet 1 Mg PO QHS Ranexa (Ranolazine) 500 Mg Tab.er.12h 2 Tab PO BID Protonix (Pantoprazole Sodium) 20 Mg Tablet.dr 2 Tab PO DAILY Ovid 3 Fish Oil Softgel (Ovid-3 Fatty Acids/Fish Oil) 1 Each Capsule.dr 1 Each PO TID NITROGLYCERIN SubLingual (Nitroglycerin) 0.4 Mg Tab.subl 0.4 Mg SL PRN Q5MIN PRN Metoprolol Tartrate 25 Mg Tablet 25 Mg PO BID Acetaminophen 500 Mg Tablet 1 Tab PO Q6HRS PRN Isosorbide Mononitrate Er (Isosorbide Mononitrate) 30 Mg Tab.er.24h 30 Mg PO DAILY Clopidogrel (Clopidogrel Bisulfate) 75 Mg Tablet 1 Tab PO DAILY Vitamin D3 (Cholecalciferol (Vitamin D3)) 1,000 Unit Tablet 2,000 Unit PO BID Niaspan (Niacin) 500 Mg Tab.er.24h 500 Mg PO HS Miralax (Polyethylene Glycol 3350) 17 Gm Powd.pack 1 Pkt PO DAILY PRN Levothyroxine Sodium 100 Mcg Tablet 100 Mcg PO DAILY06 Gaviscon Liquid (Mag Carb/Al Hydrox/Alginic Ac) 355 Ml Oral.susp 30 Ml PO PRN DAILY PRN Colace (Docusate Sodium) 100 Mg Capsule 100 Mg PO PRN DAILY PRN Caltrate 600+D3+Min Chew Tab (Ca/D3/Mag/Zinc/Vance/Miah/Mgbor) 1 Each Tab.chew 1 Each PO TID Aspirin 325 Mg Tablet 1 Tab PO DAILY Vitals/I & O Vital Sign - Last 24 Hours 05/07/20 05/07/20 05/07/20 05/07/20 09:35 09:45 10:00 10:15 Pulse 70 66 66 68 Resp 16 Pulse Ox 99 96 95 O2 Delivery Nasal Cannula Room Air Room Air Room Air O2 Flow Rate 2.0 05/07/20 05/07/20 05/07/20 05/07/20 10:30 11:00 11:00 11:30 Temp 97.7 97.7 Pulse 64 66 74 70 Resp 16 B/P (MAP) 140/76 (97) Pulse Ox 94 96 95 98 O2 Delivery Room Air Room Air Room Air Room Air 05/07/20 05/07/20 05/07/20 05/07/20 12:00 12:25 12:30 13:30 Pulse 68 75 74 88 B/P (MAP) 145/83 Pulse Ox 98 97 94 O2 Delivery Room Air Room Air Room Air 05/07/20 05/07/20 05/07/20 05/07/20 14:30 15:00 15:30 19:41 Temp 97.6 97.7 97.6 97.7 Pulse 82 76 74 82 Resp 16 16 B/P (MAP) 181/97 (125) 136/93 (107) Pulse Ox 97 98 97 98 O2 Delivery Room Air Room Air Room Air Room Air 05/07/20 05/07/20 05/07/20 05/07/20 20:00 20:53 20:53 22:47 Temp 97.9 97.9 Pulse 82 82 92 Resp 16 B/P (MAP) 136/93 136/93 126/71 (89) Pulse Ox 99 O2 Delivery Room Air Room Air 05/08/20 05/08/20 05/08/20 05/08/20 03:59 07:11 09:06 09:07 Temp 98.4 97.5 98.4 97.5 Pulse 78 86 84 86 Resp 16 16 B/P (MAP) 148/82 (104) 116/58 (77) 183/94 183/94 Pulse Ox 94 98 O2 Delivery Room Air Room Air Intake and Output 05/07/20 05/07/20 05/08/20 15:00 23:00 07:00 Intake Total 400 ml 300 ml Output Total 0 ml Balance 400 ml 300 ml Justicifation of Admission Dx: Justifications for Admission: Justification of Admission Dx: N/A ERMELINDA ODRAZ MD May 08, 2020 09:26
[2020-05-08] MEDS: RANOLAZINE 500 MG TAB.ER.12H PO SCH (09:27)
--- NOTE | 2020-05-08 10:43 | NUR ---
SS following up with discharge planning. Pt agreeable to transfer to [facility]. Pt signed transfer form. CD's and reports received from radiology and cardiology. SS phoned and faxed clinical updates to [facility], ; fax [phone]. Pt accepted and SS currently awaiting on bed assignment. Packet, CD's, transfer form, and ambulance form on the chart.
[2020-05-08 10:53] VITALS: BP 150/87
--- NOTE | 2020-05-08 11:42 | CARD ---
MR#: [id number] Date of Study: 05/08/2020 Ordering Physician: AYDE JAMESON, Referring Physician: AYDE JAMESON, Tech: Erin Damon APPROVED REPORT EXAM: Two-dimensional and M-mode echocardiogram with Doppler and color Doppler. Other Information Quality : AverageHR: 75bpm INDICATION Pre-Op Cardiac Disease: CAD Congestive Heart Failure RISK FACTORS Hypertension Hyperlipidemia 2D DIMENSIONS RVDd1.9 (2.9-3.5cm)Left Atrium(2D)2.5 (1.6-4.0cm) IVSd0.9 (0.7-1.1cm)Aortic Root(2D)2.4 (2.0-3.7cm) LVDd3.9 (3.9-5.9cm)LVOT Diameter1.9 (1.8-2.4cm) PWd1.0 (0.7-1.1cm)LVDs2.7 (2.5-4.0cm) FS (%) 32.2 %SV40.4 ml LVEF(%)61.0 (>50%) Aortic Valve AoV Peak Adriel.147.1cm/sAoV VTI27.3cm AO Peak GR.8.7mmHgLVOT Peak Adriel.105.1cm/s LVOT VTI 20.91cmAO Mean GR.5mmHg TRENT (VMAX)1.30oz5IYK (VTI)2.15cm2 Mitral Valve MV E Hkskrudx22.4cm/sMV DECEL [id number] MV A Cfxzeksp68.1cm/sMV E Mean Gr.2mmHg MV BFF17gvO/A Ratio0.7 MVA (PHT)3.05cm2 TDI E/Lateral E'9.4E/Medial E'9.9 Pulmonary Valve PV Peak Lnnvtfya301.5cm/sPV Peak Grad.5mmHg Tricuspid Valve TR P. Cpdtobsd446yb/sRAP [id number] TR Peak Gr.31nvHtJSWU35rvIz Pulmonary Vein S1 Lhlffynh06.6cm/sD2 Idtoubhp82.3cm/s PVa [id number] LEFT VENTRICLE The left ventricle is normal size. There is normal left ventricular wall thickness. The left ventricu lar systolic function is normal and the ejection fraction is within normal range. The Ejection Fracti on is 55-60%. There is normal LV segmental wall motion. Transmitral Doppler flow pattern is Grade I-a bnormal relaxation pattern. RIGHT VENTRICLE The right ventricle is normal size. There is normal right ventricular wall thickness. The right ventr icular systolic function is normal. ATRIA The left atrium size is normal. The right atrium size is normal. The interatrial septum is intact wit h no evidence for an atrial septal defect or patent foramen ovale as noted on 2-D or Doppler imaging. AORTIC VALVE The aortic valve is thickened but opens well. Doppler and Color Flow revealed trace aortic regurgitat ion. There is no significant aortic valvular stenosis. Calculated aortic valve area is 2.18 cm2 with maximum pressure gradient of 10 mmHg and mean pressure gradient of 5 mmHg. MITRAL VALVE The mitral valve is normal in structure and function. There is no evidence of mitral valve prolapse. There is no mitral valve stenosis. Doppler and Color-flow revealed trace mitral regurgitation. TRICUSPID VALVE The tricuspid valve is normal in structure and function. Doppler and Color Flow revealed trace tricus pid regurgitation with an estimated PAP of 35 mmHg. There is no tricuspid valve stenosis. PULMONIC VALVE The pulmonic valve is not well visualized. Doppler and Color Flow revealed trace pulmonic valvular re gurgitation. GREAT VESSELS The aortic root is normal in size. The ascending aorta is normal in size. The IVC is normal in size a nd collapses >50% with inspiration. PERICARDIAL EFFUSION There is no evidence of significant pericardial effusion. Critical Notification Critical Value: No <Conclusion> The left ventricle is normal size. The left ventricular systolic function is normal and the ejection fraction is within normal range. The Ejection Fraction is 55-60%. Doppler and Color Flow revealed trace aortic regurgitation. There is no significant aortic valvular stenosis. Calculated aortic valve area is 2.18 cm2 with maximum pressure gradient of 10 mmHg and mean pressure gradient of 5 mmHg. Doppler and Color-flow revealed trace mitral regurgitation. Doppler and Color Flow revealed trace tricuspid regurgitation with an estimated PAP of 35 mmHg. Signed by : Eddie Fenton MD Electronically Approved : 05/08/2020 11:42:10
--- NOTE | 2020-05-08 13:06 | NUR ---
SS following up with discharge planning. SS received phone contact from [facility], ; fax [phone], reporting pt has bed assignment at [facility]. Accepting physician, Dr. Yony Maki. Bed# 2322. Report#[phone]. Pt will discharge via [facility] ambulance, . Packet, ambulance from, and transfer form on the chart.
--- NOTE | 2020-05-08 13:06 | PDOC3 ---
Discharge Summary Date of Admission: May 07, 2020 Date of Discharge: May 08, 2020 Follow-Up: 1-2 days Admitting Diagnosis comment: discharge dx UNSTABLE ANGINA Multivessel CAD CKD stage 3 Acute on chronic diastolic heart failure, LVEDP 17 mmHg Hx of [place] with catheterization in 2018 Acute on chronic diastolic heart failure, LVEDP 17 mmHg Normal LV systolic function with ejection fraction of 65% Severe three-vessel coronary artery disease Hx of prostate cancer PLAN Transfer to [facility] today when bed available d/w rn d/c planning 35 min History of Present Illness History of Present Illness 05/08/2020 Patient is seen and examined Patient is awake and in NAD Chart reviewed Discussed with RN Vitals Vitals Vital Signs Date Time Temp Pulse Resp B/P (MAP) Pulse Ox O2 Delivery O2 Flow Rate FiO2 05/08/20 09:07 86 183/94 05/08/20 07:11 97.5 16 98 Room Air 97.5 05/07/20 09:35 2.0 Physical Exam Physical Exam GENERAL: No apparent distress. Alert and oriented. HEENT: Head normocephalic, atraumatic. NECK: Supple LUNGS: Clear to auscultation. HEART: RRR, S1, S2 present. ABDOMEN: Soft, no distension EXTREMITIES: No cyanosis or edema SKIN: No ulceration, no rashes General: Alert, Oriented X3, Cooperative, No acute distress Heart: Regular rate, Normal S1, Normal S2 Lungs: Clear Abdomen: Normal bowel sounds, Soft, No tenderness Extremities: No clubbing, No cyanosis Skin: No rashes Labs LABS CT CHEST WO CONTRAST History: Pre-CABG workup Technique: Noncontrast CT of the chest was performed. Coronal and sagittal reconstructions were performed. Exposure: One or more of the following individualized dose reduction techniques were utilized for this examination: 1. Automated exposure control 2. Adjustment of the mA and/or kV according to patient size 3. Use of iterative reconstruction technique. Comparison: None Findings: Chest: Coronary artery calcifications. Mild atheromatous plaque within the aorta. No aortic dilatation. No pathologic lymphadenopathy. No consolidation or pleural effusion. Mild linear right middle lobe and lingular atelectasis. Upper abdomen: Increased density within the gallbladder, may relate to vicarious excretion of contrast from recent contrast study gallbladder sludge. Contrast noted within the renal collecting system. Bones: No pathologic osseous lesions. Impression: 1. No acute intrathoracic pathology. Electronically signed by: Awais Murillo DO (05/07/2020 3:50 PM) [id number] INFORMED CONSENT Informed consent was obtained from the patient. ACCESS: The right wrist was prepped and draped in usual sterile fashion. Multiple attempts at traversing the right radial artery after local anesthesia with 2% lidocaine were unsuccessful. The wire would not advance past the proximal segment. Therefore the right radial access was abandoned in favor of right common femoral arterial access. The right groin was also prepped and draped in usual sterile fashion. Under 2% lidocaine local anesthesia a 6 Azeri introducer sheath was placed in the right common femoral artery without difficulties. Limited right common femoral artery angiography demonstrated no significant peripheral disease. Procedure details: Right and left coronary angiography was performed with a JR4 and JL 3 5 catheters. Left ventriculography was obtained with a pigtail catheter and a pullback was performed. Findings: Aorta 160/80 LVEDP 17 mmHg No gradient on pullback Left ventriculogram: Normal LV systolic function with ejection fraction of 60%. No significant mitral regurgitation or aortic insufficiency. Coronary angiography: Left main is a moderate caliber vessel with mild luminal irregularities Left circumflex is a moderate caliber vessel with a proximal 60% stenosis, patent proximal stent followed by a 60% stenosis in the proximal moderate caliber obtuse marginal The first obtuse marginal is a moderate caliber vessel with more proximal stenosis extending from the circumflex as described above but the distal vessel is free of disease. The LAD is a small to moderate caliber vessel with a proximal 80% stenosis involving a bifurcation lesion at the first diagonal as well as a mid 70% stenosis. The distal and apical vessel is small in caliber without significant disease The first diagonal is a small caliber vessel with a ostial proximal 80% stenosis and a mid 80% stenosis. RCA is a moderate to large caliber vessel with an ostial 70% in-stent restenosis and diffuse heavy calcification RPL is a small caliber vessel with an ostial 80% stenosis RPDA is a small to moderate caliber vessel with a mid 90% stenosis Conclusion 1. Acute on chronic diastolic heart failure, LVEDP 17 mmHg 2. Normal LV systolic function with ejection fraction of 65% 3. Severe three-vessel coronary artery disease Recommendations 1. The patient previously had declined coronary bypass grafting when he had triple-vessel disease several years ago. Given the progressive nature of his coronary disease and in-stent restenosis of the RCA he would likely benefit from evaluation for coronary bypass grafting. We will have the surgical team evaluate him. 2. Continue aspirin therapy, beta-natalee and nitrates. Hold Plavix. Signed by : Ada Jay, Electronically Approved : 05/07/2020 11:29:46 DICTATED and SIGNED BY: ADA JAY MD Brief Hospital Course Mr. Trevino is a 74 old [sex] who presented with [ UNSTABLE ANGINA] CONDITION AT DISCHARGE: Improved Discharge Medications Current Medications Acetaminophen (Tylenol) 500 mg PRN Q6HRS PRN PO MILD PAIN / TEMP > 100.3'F; Start 05/06/20 at 18:15 Aspirin (Abbey Aspirin) 325 mg DAILY PO Last administered on 05/08/20at 09:05; Start 05/07/20 at 09:00 Vitamin D (Vitamin D3) 2,000 unit BID PO Last administered on 05/08/20at 09:06; Start 05/06/20 at 21:00 Clopidogrel Bisulfate (Plavix) 75 mg DAILY PO Last administered on 05/08/20at 09:07; Start 05/07/20 at 09:00 Docusate Sodium (Colace) 100 mg PRN DAILY PRN PO HARD STOOLS; Start 05/06/20 at 18:15 Isosorbide Mononitrate (Imdur) 30 mg DAILY PO Last administered on 05/08/20at 09:07; Start 05/07/20 at 09:00 Levothyroxine Sodium (Synthroid) 100 mcg DAILY06 PO Last administered on 05/08/20at 05:54; Start 05/07/20 at 06:00 Metoprolol Tartrate (Lopressor) 25 mg BID PO Last administered on 05/08/20at 09:06; Start 05/06/20 at 21:00 Nitroglycerin (Nitrostat) 0.4 mg PRN Q5MIN PRN SL CHEST PAIN; Start 05/06/20 at 18:15 Polyethylene Glycol (miraLAX PACKET) 17 gm PRN DAILY PRN PO CONSTIPATION; Start 05/06/20 at 18:15 Ranolazine (Ranexa) 1,000 mg BID PO Last administered on 05/08/20at 09:27; Start 05/06/20 at 21:00 Calcium/Vitamin D (Oscal D 500mg/ 200uts) 1 tab TIDWMEALS PO Last administered on 05/08/20at 12:51; Start 05/07/20 at 08:00 Clonazepam (KlonoPIN) 1 mg QHS PO Last administered on 05/07/20at 20:50; Start 05/06/20 at 21:00 Artificial Tears (Artificial Tears) 1 drop QHS OU Last administered on 05/07/20at 20:53; Start 05/06/20 at 21:00 Al Hydroxide/Mg Hydroxide (Mylanta Plus Xs) 30 ml PRN Q2HR PRN PO HEARTBURN / GAS; Start 05/06/20 at 18:30 Multivitamins (Thera M Plus) 1 tab DAILY PO Last administered on 05/08/20at 09:05; Start 05/07/20 at 09:00 Niacin (Niaspan) 500 mg QHS PO Last administered on 05/07/20at 20:50; Start 05/06/20 at 21:00 Fish Oil (Fish Oil) 1,000 mg TIDWMEALS PO Last administered on 05/08/20at 09:05; Start 05/06/20 at 19:00 Pantoprazole Sodium (Protonix) 40 mg DAILYAC PO Last administered on 05/08/20at 09:07; Start 05/07/20 at 07:30 Morphine Sulfate (Morphine Sulfate) 2 mg PRN Q2HR PRN IV PAIN; Start 05/06/20 at 18:15 Ondansetron HCl (Zofran) 4 mg PRN Q4HRS PRN IVP NAUSEA/VOMITING; Start 05/06/20 at 18:15 Iodixanol (Visipaque 320) 100 ml STK-MED ONCE .ROUTE ; Start 05/07/20 at 08:23; Stop 05/07/20 at 08:24; Status DC Lidocaine HCl (Xylocaine-Mpf 1% 2ml Vial) 2 ml STK-MED ONCE .ROUTE ; Start at 08:23; Stop 05/07/20 at 08:24; Status DC Heparin Sodium/ Sodium Chloride 1,000 ml @ As Directed STK-MED ONCE .ROUTE ; Start 05/07/20 at 08:24; Stop 05/07/20 at 08:24; Status DC Fentanyl Citrate (Fentanyl 2ml Vial) 100 mcg STK-MED ONCE .ROUTE ; Start 05/07/20 at 08:29; Stop 05/07/20 at 08:29; Status DC Midazolam HCl (Versed) 2 mg STK-MED ONCE .ROUTE ; Start 05/07/20 at 08:29; Stop 05/07/20 at 08:29; Status DC Heparin Sodium (Porcine) (Heparin Sodium) 10,000 unit STK-MED ONCE .ROUTE ; Start 05/07/20 at 08:29; Stop 05/07/20 at 08:29; Status DC Verapamil HCl (Verapamil) 5 mg STK-MED ONCE .ROUTE ; Start 05/07/20 at 08:29; Stop 05/07/20 at 08:29; Status DC Nitroglycerin (Nitroglycerin) 200 mcg STK-MED ONCE .ROUTE ; Start 05/07/20 at 08:29; Stop 05/07/20 at 08:29; Status DC Nitroglycerin (Nitroglycerin) 200 mcg 1X ONCE IART ; Start 05/07/20 at 08:30; Stop 05/07/20 at 08:41; Status DC Verapamil HCl (Verapamil) 2.5 mg 1X ONCE IART ; Start 05/07/20 at 08:30; Stop 05/07/20 at 08:41; Status DC Heparin Sodium (Porcine) (Heparin Sodium) 2,500 unit 1X ONCE IART ; Start 05/07/20 at 08:30; Stop 05/07/20 at 08:41; Status DC Heparin Sodium/ Sodium Chloride (HEPARIN for ARTERIAL LINE FLUSH) 1,000 unit 1X ONCE IART Last administered on 05/07/20at 08:30; Start 05/07/20 at 08:30; Stop 05/07/20 at 08:41; Status DC Heparin Sodium/ Sodium Chloride (HEPARIN for ARTERIAL LINE FLUSH) 1,000 unit 1X ONCE IART Last administered on 05/07/20at 08:30; Start 05/07/20 at 08:30; Stop 05/07/20 at 08:41; Status DC Midazolam HCl (Versed) 2 mg 1X ONCE IV Last administered on 05/07/20at 08:49; Start 05/07/20 at 08:30; Stop 05/07/20 at 08:41; Status DC Fentanyl Citrate (Fentanyl 2ml Vial) 100 mcg 1X ONCE IV Last administered on 05/07/20at 08:49; Start 05/07/20 at 08:30; Stop 05/07/20 at 08:41; Status DC Iodixanol (Visipaque 320) 100 ml 1X ONCE IART Last administered on 05/07/20at 09:20; Start 05/07/20 at 08:30; Stop 05/07/20 at 08:41; Status DC Lidocaine HCl (Xylocaine-Mpf 1% 2ml Vial) 2 ml 1X ONCE INJ Last administered o n 05/07/20at 08:56; Start 05/07/20 at 08:30; Stop 05/07/20 at 08:41; Status DC Info (CONTRAST GIVEN -- Rx MONITORING) 1 each PRN DAILY PRN MC SEE COMMENTS; Start 05/07/20 at 08:45; Stop 05/09/20 at 08:44 Midazolam HCl (Versed) 2 mg STK-MED ONCE .ROUTE ; Start 05/07/20 at 08:54; Stop 05/07/20 at 08:55; Status DC Lidocaine HCl (Lidocaine 1% 20ml Vial) 20 ml STK-MED ONCE .ROUTE ; Start 05/07/20 at 09:02; Stop 05/07/20 at 09:03; Status DC Fentanyl Citrate (Fentanyl 2ml Vial) 100 mcg STK-MED ONCE .ROUTE ; Start 05/07/20 at 09:06; Stop 05/07/20 at 09:07; Status DC Active Scripts Active Reported Livalo (Pitavastatin Calcium) 2 Mg Tablet 1 Tab PO DAILY 30 Days Genteal Tears 0.1%-0.3% Drop (Dextran 70/Hypromellose/Pf) 1 Each Droperette 1 Each OP QHS Complete Multivitamin (Multivits,Th W-Fe,Other Min) 1 Each Tablet 1 Tab PO TID 30 Days Clonazepam 1 Mg Tablet 1 Mg PO QHS Ranexa (Ranolazine) 500 Mg Tab.er.12h 2 Tab PO BID Protonix (Pantoprazole Sodium) 20 Mg Tablet.dr 2 Tab PO DAILY Dewar 3 Fish Oil Softgel (Dewar-3 Fatty Acids/Fish Oil) 1 Each Capsule.dr 1 Each PO TID NITROGLYCERIN SubLingual (Nitroglycerin) 0.4 Mg Tab.subl 0.4 Mg SL PRN Q5MIN PRN Metoprolol Tartrate 25 Mg Tablet 25 Mg PO BID Acetaminophen 500 Mg Tablet 1 Tab PO Q6HRS PRN Isosorbide Mononitrate Er (Isosorbide Mononitrate) 30 Mg Tab.er.24h 30 Mg PO DAILY Clopidogrel (Clopidogrel Bisulfate) 75 Mg Tablet 1 Tab PO DAILY Vitamin D3 (Cholecalciferol (Vitamin D3)) 1,000 Unit Tablet 2,000 Unit PO BID Niaspan (Niacin) 500 Mg Tab.er.24h 500 Mg PO HS Miralax (Polyethylene Glycol 3350) 17 Gm Powd.pack 1 Pkt PO DAILY PRN Levothyroxine Sodium 100 Mcg Tablet 100 Mcg PO DAILY06 Gaviscon Liquid (Mag Carb/Al Hydrox/Alginic Ac) 355 Ml Oral.susp 30 Ml PO PRN DAILY PRN Colace (Docusate Sodium) 100 Mg Capsule 100 Mg PO PRN DAILY PRN Caltrate 600+D3+Min Chew Tab (Ca/D3/Mag/Zinc/Vance/Miah/Mgbor) 1 Each Tab.chew 1 Each PO TID Aspirin 325 Mg Tablet 1 Tab PO DAILY Vital Signs Vital Signs Date Time Temp Pulse Resp B/P (MAP) Pulse Ox O2 Delivery O2 Flow Rate FiO2 05/08/20 10:53 97.8 93 18 150/87 (108) 96 Room Air 97.8 05/07/20 09:35 2.0 Labs Laboratory Tests Test 05/07/20 16:27 SARS-CoV-2 Antigen (Rapid) Negative (NEGATIVE) Laboratory Tests Test 05/07/20 16:27 SARS-CoV-2 Antigen (Rapid) Negative (NEGATIVE) Allergies Allergies Coded Allergies Type Severity Reaction Last Updated Verified atorvastatin Allergy Intermediate 10/25/17 Yes ezetimibe Allergy Intermediate 10/25/17 Yes fenofibrate Allergy Intermediate 10/25/17 Yes pravastatin Allergy Intermediate 10/25/17 Yes rosuvastatin Allergy Intermediate 10/25/17 Yes simvastatin Allergy Intermediate 10/25/17 Yes Disposition/Orders: Other (d/c to [facility]) Justicifation of Admission Dx: Justifications for Admission: Justification of Admission Dx: N/A ERMELINDA ORDAZ MD May 08, 2020 13:06
--- NOTE | 2020-05-08 13:09 | SNU/HH DC ---
DISCHARGE ORDERS DISCHARGE INFORMATION: CONDITION ON DISCHARGE: Stable CODE STATUS: Code Status: Full [facility]: SNF STAY <30 DAYS: No HOSPICE: HOSPICE: No HOSPICE EVAL & TREAT: No LTAC: ADMIT TO LTAC: No POST DISCHARGE ORDERS: ACTIVITY ORDERS: Activity as tolerated WEIGHT BEARING STATUS: As tolerated BATHING ORDERS: Shower-keep dressing dry DIET AFTER DISCHARGE: Cardiac WOUND/INCISION CARE: No wound care needed CHECKS AFTER DISCHARGE: CHECKS AFTER DISCHARGE: Check blood press - daily, Weigh Yourself Daily FOLLOW-UP: PHYSICIAN FOLLOW-UP: TO [facility] TODAY TREATMENT/EQUIPMENT ORDERS: ADAPTIVE EQUIPMENT NEEDED: None DISCHARGE MEDICATIONS: Home Meds Reported Medications Pitavastatin Calcium (LIVALO) 2 Mg Tablet, 1 TAB PO DAILY for cholesterol for 30 Days, #30 TAB 0 Refills 01/06/20 Dextran 70/Hypromellose/Pf (Genteal Tears 0.1%-0.3% Drop) 1 Each Droperette, 1 EACH OP QHS for dry eye, DROP 01/06/20 Multivits,Th W-Fe,Other Min (COMPLETE MULTIVITAMIN) 1 Each Tablet, 1 TAB PO TID for supp for 30 Days, #90 TAB 0 Refills 01/06/20 Clonazepam (CLONAZEPAM) 1 Mg Tablet, 1 MG PO QHS for FOR ANXIETY, TAB 01/06/20 Ranolazine (RANEXA) 500 Mg Tab.er.12h, 2 TAB PO BID, #60 TAB 3 Refills 06/26/18 Pantoprazole Sodium (PROTONIX) 20 Mg Tablet.dr, 2 TAB PO DAILY for reflux, #30 TAB 06/26/18 Sherman-3 Fatty Acids/Fish Oil (OMEGA 3 FISH OIL SOFTGEL) 1 Each Capsule.dr, 1 EACH PO TID, CAP 06/26/18 Nitroglycerin (NITROGLYCERIN SubLingual) 0.4 Mg Tab.subl, 0.4 MG SL PRN Q5MIN PRN for CHEST PAIN, BOTTLE 06/25/18 Metoprolol Tartrate (METOPROLOL TARTRATE) 25 Mg Tablet, 25 MG PO BID for FOR HYPERTENSION, #60 TAB 0 Refills 06/25/18 Acetaminophen (ACETAMINOPHEN) 500 Mg Tablet, 1 TAB PO Q6HRS PRN for MILD PAIN / TEMP, #60 TAB 06/25/18 Isosorbide Mononitrate (ISOSORBIDE MONONITRATE ER) 30 Mg Tab.er.24h, 30 MG PO DAILY, TAB.SR 10/27/17 Clopidogrel Bisulfate (CLOPIDOGREL) 75 Mg Tablet, 1 TAB PO DAILY, #90 TAB 1 Refill 10/27/17 Cholecalciferol (Vitamin D3) (VITAMIN D3) 1,000 Unit Tablet, 2000 UNIT PO BID, TAB 10/25/17 Niacin (NIASPAN) 500 Mg Tab.er.24h, 500 MG PO HS, TAB.SR 10/25/17 Polyethylene Glycol 3350 (MIRALAX) 17 Gm Powd.pack, 1 PKT PO DAILY PRN for CON STIPATION, PKT 10/25/17 Levothyroxine Sodium (LEVOTHYROXINE SODIUM) 100 Mcg Tablet, 100 MCG PO DAILY06 for THYROID SUPPLEMENT, #30 TAB 0 Refills 10/25/17 Mag Carb/Al Hydrox/Alginic Ac (GAVISCON LIQUID) 355 Ml Oral.susp, 30 ML PO PRN DAILY PRN for CONSTIPATION, MISC 10/25/17 Docusate Sodium (COLACE) 100 Mg Capsule, 100 MG PO PRN DAILY PRN for CONSTIPATION, CAP 10/25/17 Ca/D3/Mag/Zinc/Vance/Miah/Mgbor (Caltrate 600+D3+Min Chew Tab) 1 Each Tab.chew, 1 EACH PO TID, TAB.CHEW 10/25/17 Aspirin (ASPIRIN) 325 Mg Tablet, 1 TAB PO DAILY for heart, TAB 10/25/17 ERMELINDA ORDAZ MD May 08, 2020 13:09
--- NOTE | 2020-05-08 17:00 | NUR ---
Discharge Note: [facility] [address] [place] Discharge instructions and discharge home medications reviewed with Other facility and a copy given. All questions have been answered and understanding verbalized. The following instructions and handouts were given: CABG info, post cath info. Discontinued lines and drains: left intact. Patient transferred to [facility] with [facility] via Wheel[facility] at 1700. Report given to ANKIT Álvarez at [facility].
== END 2020-05-08 17:00 | disposition short-term general hospital (02) | DRG 286 ==
LOC: 2 NORTH 17:10
PROVIDERS: ADMIT Internal Medicine; ATTEND Internal Medicine
PROC: 4A023N7 Measurement of Cardiac Sampling and Pressure, Left Heart, Percutaneous Approach (ICD-10-PCS; principal; 2020-05-07)
PROC: B2111ZZ Fluoroscopy of Multiple Coronary Arteries using Low Osmolar Contrast (ICD-10-PCS; 2020-05-07)
PROC: B2151ZZ Fluoroscopy of Left Heart using Low Osmolar Contrast (ICD-10-PCS; 2020-05-07)
PROC: B41F1ZZ Fluoroscopy of Right Lower Extremity Arteries using Low Osmolar Contrast (ICD-10-PCS; 2020-05-07)
DX: I25.110 Atherosclerotic heart disease of native coronary artery with unstable angina pectoris (principal); I50.33 Acute on chronic diastolic (congestive) heart failure; I13.0 Hypertensive heart and chronic kidney disease with heart failure and stage 1 through stage 4 chronic kidney disease, or unspecified chronic kidney disease; E78.5 Hyperlipidemia, unspecified; F32.9 Major depressive disorder, single episode, unspecified; F41.9 Anxiety disorder, unspecified; K21.9 Gastro-esophageal reflux disease without esophagitis; K59.00 Constipation, unspecified; N18.3 Chronic kidney disease, stage 3 (moderate); Z20.828 Contact with and (suspected) exposure to other viral communicable diseases; I25.2 Old myocardial infarction; Z82.49 Family history of ischemic heart disease and other diseases of the circulatory system; Z85.46 Personal history of malignant neoplasm of prostate; Z88.8 Allergy status to other drugs, medicaments and biological substances; Z79.899 Other long term (current) drug therapy
CPT/HCPCS: 93458; G0269; 71250; 87426; 93306; 93880; 93970; 99152; 99153; C1760; C1769; C1892; J1644; J2250; J3010; J3490; Q9967; C1771; G0378; U0003-CS